=== PATIENT | female | born 2000 | race Caucasian/White ===

== ENCOUNTER 2019-04-28 22:34 | Emergency (ER) | payer BC ==
[~2019-04-28] VITALS: Ht 172.7 cm; Wt 68.2 kg
[2019-04-28 22:38] VITALS: BP 132/86; TEMP 99.2
[2019-04-28] MEDS ORDERED: YAZ 28 3 MG-0.01 TAB PO (22:51)
[2019-04-28] MEDS ORDERED: DOXYCYCLINE 10100 MG PO (22:51)
[2019-04-28] MEDS ORDERED: PROAIR HFA0.09 MG/AC IH (22:52)
[2019-04-29 00:12] VITALS: PULSE 101
== END 2019-04-28 23:20 | disposition home or self-care (01) ==
LOC: COL.ER 22:34
DX: L29.9 Pruritus, unspecified (principal)

== ENCOUNTER 2022-09-13 16:23 | Emergency (ER) | payer BC ==
[~2022-09-13] VITALS: Ht 172.7 cm; Wt 72.7 kg
[~2022-09-13 16:23] MED LIST: DOXYCYCLINE 10100 MG PO; PROAIR HFA0.09 MG/AC IH; YAZ 28 3 MG-0.01 TAB PO; ZOFRAN 4MG T4 MG/TAB PO
[2022-09-13 16:40] VITALS: TEMP 98.4
[2022-09-13 18:28] LABS: BASO % 0.3 % (0.0-2.0); EOS # 0.1 K/mm3 (0.0-0.7); EOS % 0.7 % (0.0-4.0); GRAN # 3.6 K/mm3 (1.4-6.5); GRAN % 50.8 % (42.2-75.2); HEMATOCRIT 42.5 % (37.0-47.0); HEMOGLOBIN 14.3 g/dl (12.5-16.0); LYMPH # 3.1 K/mm3 (1.2-3.4); LYMPH % 42.9 % (20.0-51.0); MEAN CELL VOLUME 89 fl (80.0-100.0); MEAN CORPUSCULAR HEMOGLOBIN 30 pg (27-31); MEAN CORPUSCULAR HGB CONC 34 g/dl (33.0-37.0); MEAN PLATELET VOLUME 10.3 fl (7.4-10.4); MONO # 0.4 K/mm3 (0.1-0.6); MONO % 5.2 % (1.7-9.3); PLATELET COUNT 194 K/mm3 (130-400); RED BLOOD COUNT 4.77 M/mm3 (4.10-5.30); REDCELL DISTRIBUTION WIDTH-CV 11.9 % (11.5-14.5)
[2022-09-13 19:20] VITALS: BP 130/92; PULSE 81
== END 2022-09-13 19:21 | disposition home or self-care (01) ==
LOC: COL.ER 16:23
PROVIDERS: Emergency Medicine
DX: N93.8 Other specified abnormal uterine and vaginal bleeding (principal); Z87.42 Personal history of other diseases of the female genital tract